=== PATIENT | female | born 1980 | race Caucasian/White ===

== ENCOUNTER 2020-10-19 14:16 | Emergency (ER) | payer BC ==
--- NOTE | 2020-10-19 14:30 | EDM.PDOC ---
ED HPI GENERAL MEDICAL PROBLEM - General Stated Complaint: LEG PAIN Time Seen by Provider: 10/19/20 14:30 Source of Information: Reports: Patient History Limitations: Reports: No Limitations - History of Present Illness INITIAL COMMENTS - FREE TEXT/NARRATIVE: 39-year-old female who developed symptoms of cough and nasal congestion on last Friday. They got progressively worse and were associated with some shortness of breath and some nausea and dizziness. Friday, she was tested for Covid and was positive. She is undergoing home monitoring through [facility] and today was told to come in for evaluation secondary to her having right calf and lower extremity pain with a history of a DVT. She did have BAM therapy yesterday. She reports that 3 days ago she began to develop pain in her posterior right calf and now has pain going up the right medial thigh area this is an aching and sharp type pain that she rates as a 3/10. She does feel that there is some swelling in the calf. It should also be noted that the patient did hit her right medial, upper calf against a piece of furniture before the pain began and she does have some bruising in this area now. She does not have chest pain. She does have a cough and feeling of shortness of breath. She has been having nausea but no vomiting but the nausea has gotten better over the past 2 days as have her other symptoms of cough and feelings of shortness of breath. No hemoptysis. No fevers. She has not had much of an appetite but she has been drinking liquids well. There are no other associated signs or symptoms. There are no other modifying factors. Onset: Other (Pain in right calf began 3 days ago) Duration: Getting Worse Location: Reports: Lower Extremity, Right Quality: Reports: Ache (Right calf and medial thigh), Other (Cramping) Severity: Mild Improves with: Reports: Rest Worsens with: Reports: Other (Palpation), Movement Context: Reports: Other (As above.) Associated Symptoms: Reports: No Other Symptoms (Except as above.) Treatments CRUISE COORDINATOR: Reports: Other (see below) (Nothing for this in particular.) Right Leg Pain Score (Numeric/FACES): 4 - Related Data Allergies Allergy/AdvReac Type Severity Reaction Status Date / Time loratadine [From Claritin-D] AdvReac Other Verified 07/02/14 23:17 pseudoephedrine sulfate AdvReac Other Verified 07/02/14 23:18 [From Claritin-D] Home Meds: Home Meds ALPRAZolam [Alprazolam] 0.5 mg PO DAILY 11/12/15 [History] Past Medical History Psychiatric History: Reports: Anxiety, Depression - Past Surgical History GI Surgical History: Reports: Cholecystectomy Female Surgical History: Reports: Section (4) Social & Family History - Tobacco Use Tobacco Use Status *Q: Former Tobacco User (Nonsmoker for the past 4 years.) - Alcohol Use Alcohol Use History: No ED ROS GENERAL - Review of Systems Review Of Systems: See Below Constitutional: Reports: Malaise HEENT: Reports: Sinus Problem, Other (Nasal congestion) Respiratory: Reports: Shortness of Breath, Cough. Denies: Hemoptysis Cardiovascular: Reports: No Symptoms Endocrine: Reports: No Symptoms GI/Abdominal: Reports: Nausea Musculoskeletal: Reports: Leg Pain (Right calf and medial thigh pain) Skin: Reports: No Symptoms Neurological: Reports: No Symptoms Hematologic/Lymphatic: Reports: No Symptoms Immunologic: Reports: No Symptoms ED EXAM, GENERAL - Physical Exam Exam: See Below Exam Limited By: No Limitations General Appearance: Alert, WD/WN, Mild Distress, Other (Nontoxic appearing.) Eye Exam: Bilateral Eye: EOMI, Normal Inspection Ears: Normal External Exam, Hearing Grossly Normal Ear Exam: Bilateral Ear: Auricle Normal Nose: Nasal Drainage Throat/Mouth: Normal Inspection, Normal Lips, Normal Oropharynx, Normal Voice, No Airway Compromise Head: Atraumatic, Normocephalic Neck: Normal Inspection, Supple, Non-Tender, Full Range of Motion Respiratory/Chest: No Respiratory Distress, No Accessory Muscle Use, Crackles (In both bases.) Cardiovascular: Normal Peripheral Pulses, Regular Rate, Rhythm, No Murmur Peripheral Pulses: 2+: Radial (L), Radial (R) GI/Abdominal: Normal Bowel Sounds, Soft, Non-Tender, No Distention, No Mass Back Exam: Normal Inspection, Full Range of Motion Extremities: Normal Range of Motion, Normal Capillary Refill, Gita's Sign, Other (Ecchymosis over right proximal, medial calf. There is tenderness to palpation in this area.) Neurological: Alert, Oriented, CN II-XII Intact, Normal Cognition, No Mo tor/Sensory Deficits Psychiatric: Normal Affect Skin Exam: Warm, Dry, Intact, No Rash, Ecchymosis (On right calf as above.) Course - Vital Signs Last Recorded V/S: Last Vital Signs Temp 36.9 C 10/19/20 14:16 Pulse 105 H 10/19/20 14:16 Resp 18 10/19/20 14:16 BP 126/92 H 10/19/20 14:16 Pulse Ox 99 10/19/20 14:16 - Orders/Labs/Meds Orders: Active Orders 24 hr Category Date Time Status VL Duplex Lwr Ext Veins Ltd Rt [US] Stat Exams 10/19/20 14:42 Ordered - Radiology Interpretation Free Text/Narrative:: Doppler venous ultrasound of right lower extremity was negative for DVT. - Re-Assessments/Exams Free Text/Narrative Re-Assessment/Exam: 10/19/20 15:25: The ultrasound was negative for DVT. She does have bruising in this area and I suspect this is the etiology of her pain. She should do symptomatic treatment for the calf and thigh pain. She is in no respiratory distress at this point. Her O2 saturations are 100% on room air. She should continue her therapy as she has been doing for her Covid. She is cleared for discharge at this point. Departure - Departure Time of Disposition: 15:33 Disposition: Home, Self-Care 01 Clinical Impression: COVID-19 virus infection Contusion of right calf Qualifiers: Encounter type: initial encounter Qualified Code(s): S80.11XA - Contusion of right lower leg, initial encounter URI (upper respiratory infection) Qualifiers: URI type: unspecified URI Qualified Code(s): J06.9 - Acute upper respiratory infection, unspecified - Discharge Information Instructions: Contusion, [id number] Additional Instructions: The ultrasound of your right leg showed no evidence of blood clots. You appear to have a bruise to this area. You should take Tylenol 1000 mg by mouth every 6 hours as needed for pain. You can also take ibuprofen for your pain as needed. Continue therapy for your COVID infection as you are doing. Back to the emergency department for worsening breathing, severe weakness, unrelenting vomiting or any other concerning sign or symptom. Sepsis Event Note (ED) - Focused Exam Vital Signs: Vital Signs Temp Pulse Resp BP Pulse Ox 10/19/20 14:16 36.9 C 105 H 18 126/92 H 99 - My Orders Last 24 Hours: My Active Orders 10/19/20 14:42 VL Duplex Lwr Ext Veins Ltd Rt [US] Stat - Assessment/Plan Last 24 Hours: My Active Orders 10/19/20 14:42 VL Duplex Lwr Ext Veins Ltd Rt [US] Stat
[2020-10-19 15:17] VITALS: BP 126/92; PULSE 105
--- NOTE | 2020-10-19 17:29 | US ---
INDICATION: Right calf pain, history of DVT. DUPLEX ULTRASOUND RIGHT LOWER EXTREMITY VEINS: Utilizing 2-D real time, duplex Doppler spectral analysis and color flow imaging, examination of the lower extremity veins, including the common femoral vein, proximal greater saphenous vein, proximal deep femoral vein, proximal femoral vein, mid femoral vein, distal femoral vein, popliteal vein, posterior tibial vein, and anterior tibial vein, (peroneal vein was not adequately visualized), revealed no evidence of deep venous thrombosis or obstruction. Compression views showed no abnormal lack of compression to suggest thrombosis. No evidence of incompetence of the valves was identified. IMPRESSION: Duplex ultrasound, lower extremity veins, shows no evidence of deep venous thrombosis or incompetence. MTDD
== END 2020-10-19 16:16 | disposition home or self-care (01) ==
LOC: FB.ED 14:16
DX: U07.1 COVID-19 (principal); S80.11XA Contusion of right lower leg, initial encounter; J06.9 Acute upper respiratory infection, unspecified; Z88.8 Allergy status to other drugs, medicaments and biological substances; Z87.891 Personal history of nicotine dependence; W22.8XXA Striking against or struck by other objects, initial encounter
CPT/HCPCS: 93971-RT; 99283-25